=== PATIENT | male | born 1930 | race Two or more races ===

== ENCOUNTER 2016-10-22 21:52 | Emergency (ER) | payer OTHER ==
[2016-10-22 22:06] VITALS: TEMP 97.8; BMI 22.3
--- NOTE | 2016-10-22 22:25 | PDOC ---
History of Present Illness - General History Source: Patient, Family Exam Limitations: No Limitations - History of Present Illness Initial Comments: 10/22/16 22:38 The patient is a 86 year old male with significant past medical history of hypertension who presents to the ED for elevated blood pressure prior to arrival. As per family, at bedside, became concerned after noting his blood pressure elevated. States after checking monitoring his blood pressure several times despite the patient taking his medications, his blood pressure continued to be elevated. Patient does not have any complaints. Family states his blood pressure has improved since he has been in the ER. His blood pressure at home was 180 systolic and now it is 170 systolic. The patient denies fever, chills, cough, SOB, chest pain, and palpitations. The patient denies abdominal pain, nausea, vomiting, and diarrhea. Allergies: Penicillin Social History: No alcohol, tobacco, or drug use reported. Past Surgical History: None reported PCP: Dr. John Bethea <Brie Nava - Last Filed: 10/22/16 22:38> - General History Source: Patient, Family <Jeovanny España - Last Filed: 10/22/16 23:40> - General Chief Complaint: Blood Pressure Problem Stated Complaint: BLOOD PRESSURE PROBLEM Time Seen by Provider: 10/22/16 22:22 Past History <Brie Nava - Last Filed: 10/22/16 22:38> - Past Medical History Anemia: No Asthma: No Cancer: No Cardiac Disorders: No CVA: No COPD: No CHF: No Dementia: No Diabetes: No GI Disorders: No Disorders: No HTN: Yes Hypercholesterolemia: No Liver Disease: No Seizures: No Thyroid Disease: No - Psycho/Social/Smoking Cessation Hx Anxiety: No Suicidal Ideation: No Smoking History: Current some day smoker Number of Cigarettes Smoked Daily: 2 Cigars Per Day: 1 Information on smoking cessation initiated: No 'Breaking Loose' booklet given: 08/16/15 Hx Alcohol Use: No Drug/Substance Use Hx: No Substance Use Type: None Hx Substance Use Treatment: No <Jeovanny España - Last Filed: 10/22/16 23:40> - Past Medical History Allergies/Adverse Reactions: Allergies Allergy/AdvReac Type Severity Reaction Status Date / Time Penicillins Allergy Verified 10/22/16 22:02 Home Medications: Ambulatory Orders Losartan Potassium 25 mg PO DAILY 10/22/16 Metoprolol Tartrate 25 mg PO BID 10/22/16 Review of Systems - Review of Systems Able to Perform ROS?: Yes Comments:: 10/22/16 22:38 CONSTITUTIONAL: Absent: fever, no chills, no fatigue EYES: Absent: visual changes ENT: Absent: ear pain, no sore throat CARDIOVASCULAR: +elevated blood pressure Absent: chest pain, no palpitations RESPIRATORY: Absent: cough, no SOB GI: Absent: abdominal pain, no nausea, no vomiting, no constipation, no diarrhea GENITOURINARY: Absent: dysuria, no frequency, no hematuria MUSCULOSKELETAL: Absent: back pain, no arthralgia, no myalgia SKIN: Absent: rash NEURO: Absent: headache <Brie Nava - Last Filed: 10/22/16 22:38> *Physical Exam - Vital Signs Last Vital Signs Temp Pulse Resp BP Pulse Ox 97.8 F 68 18 171/89 98 10/22/16 22:03 10/22/16 22:03 10/22/16 22:03 10/22/16 22:03 10/22/16 22:03 - Physical Exam Comments: 10/22/16 22:39 GENERAL: Well-appearing, well-nourished. No apparent distress. HEENT: Normocephalic, atraumatic. PERRL, EOM intact. CARDIOVASCULAR: Normal S1, S2. Regular rate and rhythm. PULMONARY: Clear to auscultation bilaterally. ABDOMEN: Soft, non-distended, non-tender. EXTREMITIES: Normal ROM in all four extremities. No gross deformities. SKIN: Warm, dry. No rash NEUROLOGICAL: No focal neurological deficits. <Brie Nava - Last Filed: 10/22/16 22:38> - Vital Signs Last Vital Signs Temp Pulse Resp BP Pulse Ox 97.8 F 68 18 171/89 98 10/22/16 22:03 10/22/16 22:03 10/22/16 22:03 10/22/16 22:03 10/22/16 22:03 <Jeovanny España - Last Filed: 10/22/16 23:40> Medical Decision Making - Medical Decision Making 10/22/16 23:40 Dr. España: The scribe's documentation has been prepared under my direction and personally reviewed by me in its entirery. I confirm that the note above accurately reflects all work, treatment, procedures, and medical decision making performed by me. <Jeovanny España - Last Filed: 10/22/16 23:40> *DC/Admit/Observation/Transfer - Attestations Scribe Attestion: 10/22/16 22:39 Documentation prepared by Brie Nava, acting as medical sales representative for Jeovanny España MD/DO. <Brie Nava - Last Filed: 10/22/16 22:38> - Discharge Dispostion Admit: No <Jeovanny España - Last Filed: 10/22/16 23:40> Diagnosis at time of Disposition: Hypertension - Discharge Dispostion Disposition: HOME Condition at time of disposition: Improved - Referrals Referrals: John Bethea MD [Primary Care Provider] - - Patient Instructions Printed Discharge Instructions: DI for High Blood Pressure, How to Monitor Your Blood Pressure at Home Print Language: CAP[place] VERDEAN
[2016-10-22 22:58] VITALS: BP 169/81; PULSE 65
== END 2016-10-22 23:51 | disposition home or self-care (01) ==
LOC: JER 21:52
DX: I10 Essential (primary) hypertension (principal); F17.210 Nicotine dependence, cigarettes, uncomplicated
CPT/HCPCS: 99281-25

== ENCOUNTER 2016-11-11 14:00 | Emergency (ER) | payer OTHER ==
[2016-11-11 14:10] VITALS: TEMP 97.3; BMI 20.2
--- NOTE | 2016-11-11 15:55 | PDOC ---
History of Present Illness - General History Source: Patient Exam Limitations: No Limitations - History of Present Illness Initial Comments: 11/11/16 17:27 The patient is a 86 year old male presenting with his family, with a significant past medical history of HTN, HLD, AAA and dementia, who presents to the emergency department after a fall yesterday. The family states that the patient fell and hit the left side of his head, as well as the left side of her ribs. The family denies any loss of consciousness. The patient is not on blood thinners. The patient describes the headache as mild, without radiation or modifying factors. The patient also describes his left sided rib pain as ranging from mild to moderate, without radiation. He notes that the pain is exacerbated when he takes a deep breath. The patient has been taking Motrin 800 mg with no relief of his symptoms. The patient denies chest pain, shortness of breath and dizziness. Denies fever, chills, nausea, vomit, diarrhea and constipation. Denies dysuria, frequency, urgency and hematuria. Allergies: Penicillin Past surgical history: None reported Social history: No alcohol, tobacco or drug reported <Jeovanny Aquino - Last Filed: 11/11/16 17:27> <Blas Nazario - Last Filed: 11/11/16 18:49> - General Chief Complaint: Injury Stated Complaint: CHEST PAIN Past History <Jeovanny Aquino - Last Filed: 11/11/16 17:27> - Past Medical History Anemia: No Asthma: No Cancer: No Cardiac Disorders: No CVA: No COPD: No CHF: No Dementia: No Diabetes: Yes GI Disorders: No Disorders: No HTN: Yes Hypercholesterolemia: Yes Liver Disease: No Seizures: No Thyroid Disease: No Other medical history: AAA - Psycho/Social/Smoking Cessation Hx Anxiety: No Suicidal Ideation: No Smoking History: Current some day smoker Have you smoked in the past 12 months: Yes Number of Cigarettes Smoked Daily: 2 Cigars Per Day: 1 Information on smoking cessation initiated: Yes 'Breaking Loose' booklet given: 11/11/16 Hx Alcohol Use: No Drug/Substance Use Hx: No Substance Use Type: None Hx Substance Use Treatment: No <Blas Nazario - Last Filed: 11/11/16 18:49> - Past Medical History Allergies/Adverse Reactions: Allergies Allergy/AdvReac Type Severity Reaction Status Date / Time Penicillins Allergy Verified 11/11/16 14:04 Home Medications: Ambulatory Orders Losartan Potassium 25 mg PO DAILY 10/22/16 Metoprolol Tartrate 25 mg PO BID 10/22/16 Atorvastatin Ca [Lipitor] 20 mg PO HS 11/11/16 Donepezil HCl [Aricept -] 5 mg PO DAILY 11/11/16 Ondansetron [Zofran *Odt*] 8 mg SL TID #30 od.tablet 11/11/16 Oxycodone HCl/Acetaminophen [Percocet 5-325 mg Tablet] 1 tab PO Q4H #20 tablet MDD 4 11/11/16 Review of Systems - Review of Systems Able to Perform ROS?: Yes Comments:: 11/11/16 17:28 GENERAL/CONSTITUTIONAL: No fever or chills. No weakness. HEAD, EYES, EARS, NOSE AND THROAT: (+) Ecchymosis left side of head. No change in vision. No ear pain or discharge. No sore throat. CARDIOVASCULAR: No chest pain or shortness of breath RESPIRATORY: No cough, wheezing, or hemoptysis. GASTROINTESTINAL: No nausea, vomiting, diarrhea or constipation. GENITOURINARY: No dysuria, frequency, or change in urination. MUSCULOSKELETAL: (+) Left sided rib pain. No neck or back pain. SKIN: No rash NEUROLOGIC: (+) Headache. No vertigo, loss of consciousness, or change in strength/sensation. ENDOCRINE: No increased thirst. No abnormal weight change HEMATOLOGIC/LYMPHATIC: No anemia, easy bleeding, or history of blood clots. ALLERGIC/IMMUNOLOGIC: No hives or skin allergy. <Jeovanny Aquino - Last Filed: 11/11/16 17:27> *Physical Exam - Vital Signs Last Vital Signs Temp Pulse Resp BP Pulse Ox 97.3 F L 61 18 162/87 98 11/11/16 14:06 11/11/16 14:06 11/11/16 14:06 11/11/16 14:06 11/11/16 14:06 - Physical Exam Comments: 11/11/16 17:28 GENERAL: Awake, alert, and fully oriented, in no acute distress HEAD: (+) Ecchymosis left side of latter-day. Normocephalic. EYES: PERRLA, EOMI, sclera anicteric, conjunctiva clear ENT: Auricles normal inspection, hearing grossly normal, nares patent, oropharynx clear without exudates. Moist mucosa NECK: Normal ROM, supple, no lymphadenopathy, JVD, or masses LUNGS: No distress, speaks full sentences, clear to auscultation bilaterally HEART: Regular rate and rhythm, normal S1 and S2, no murmurs, rubs or gallops, peripheral pulses normal and equal bilaterally. ABDOMEN: Soft, nontender, normoactive bowel sounds. No guarding, no rebound. No masses EXTREMITIES: Normal inspection, Normal range of motion, no edema. No clubbing or cyanosis. NEUROLOGICAL: Cranial nerves II through XII grossly intact. Normal speech, normal gait, no focal sensorimotor deficits SKIN: Warm, Dry, normal turgor, no rashes or lesions noted. <Jeovanny Aquino - Last Filed: 11/11/16 17:27> - Vital Signs Last Vital Signs Temp Pulse Resp BP Pulse Ox 97.3 F L 61 18 162/87 98 11/11/16 14:06 11/11/16 14:06 11/11/16 14:06 11/11/16 14:06 11/11/16 14:06 <Blas Nazario - Last Filed: 11/11/16 18:49> *DC/Admit/Observation/Transfer - Attestations Scribe Attestion: 11/11/16 17:29 Documentation prepared by Jeovanny Aquino, acting as vp medical for Blas Nazario MD <Jeovanny Aquino - Last Filed: 11/11/16 17:27> - Discharge Dispostion Admit: No - Attestations Physician Attestion: 11/11/16 15:55 I, Dr. Blas Nazario, attest that this document has been prepared under my direction and personally reviewed by me in its entirety. I further attest, that it accurately reflects all work, treatment, procedures and medical decision -making performed by me. <Blas Nazario - Last Filed: 11/11/16 18:49> Diagnosis at time of Disposition: Head contusion Qualifiers: Encounter type: initial encounter Contusion of head detail: scalp Qualified Code(s): S00.03XA - Contusion of scalp, initial encounter Contusion of rib Qualifiers: Encounter type: initial encounter Laterality: left Qualified Code(s): S20.212A - Contusion of left front wall of thorax, initial encounter - Prescriptions Prescriptions: Oxycodone HCl/Acetaminophen [Percocet 5-325 mg Tablet] 1 tab PO Q4H #20 tablet MDD 4 Ondansetron [Zofran *Odt*] 8 mg SL TID #30 od.tablet - Referrals Referrals: John Bethea MD [Primary Care Provider] - - Patient Instructions Printed Discharge Instructions: DI for Rib Contusion, DI for Closed Head Injury Additional Instructions: Return to if any problems. Use the incentive spirometer so you dont gety pneumonia.
[2016-11-11] MEDS ORDERED: ONDANSETRON *ODT* 4 MG TABLET SL ONE (18:16)
[2016-11-11] MEDS ORDERED: HYDROmorphone HCL CARPU-JECT 1 MG/1 ML DISP.SYRIN IM ONE (18:16)
[2016-11-11] MEDS ORDERED: HYDROmorphone HCL CARPU-JECT 1 MG/1 ML DISP.SYRIN ONE (18:32)
[2016-11-11] MEDS ORDERED: ONDANSETRON *ODT* 4 MG TABLET ONE (18:32)
[2016-11-11 18:40] VITALS: BP 152/64; PULSE 65
--- NOTE | 2016-11-18 11:45 | EKG ---
Test Reason : Blood Pressure : / mmHG Vent. Rate : 062 BPM Atrial Rate : 062 BPM P-R Int : 240 ms QRS Dur : 084 ms QT Int : 392 ms P-R-T Axes : 034 -03 025 degrees QTc Int : 397 ms SINUS RHYTHM WITH 1ST DEGREE A-V BLOCK POSSIBLE INFERIOR INFARCT , AGE UNDETERMINED ABNORMAL ECG WHEN COMPARED WITH ECG OF 02-MAR-2016 20:32, NO SIGNIFICANT CHANGE WAS FOUND Confirmed by WHIT SOFIA, PITO ([id number]) on 11/18/2016 11:45:23 AM Referred By: Confirmed By:PITO SHERMAN MD
== END 2016-11-11 19:12 | disposition home or self-care (01) ==
LOC: JER 14:00
PROC: 3E023NZ Introduction of Analgesics, Hypnotics, Sedatives into Muscle, Percutaneous Approach (ICD-10-PCS; principal; 2016-11-11)
DX: S00.83XA Contusion of other part of head, initial encounter (principal); S20.212A Contusion of left front wall of thorax, initial encounter; W01.198A Fall on same level from slipping, tripping and stumbling with subsequent striking against other object, initial encounter; Y93.89 Activity, other specified; Y92.89 Other specified places as the place of occurrence of the external cause; Y99.8 Other external cause status
CPT/HCPCS: 70450-TC; 71250-TC; 72125-TC; 93005; 93010; 96372; 99282-25

== ENCOUNTER 2017-05-26 12:42 | Inpatient (IN) | payer OTHER ==
--- NOTE | 2017-05-26 12:52 | PDOC ---
History of Present Illness - General Stated Complaint: VOMITING Past History - Past Medical History Allergies/Adverse Reactions: Allergies Allergy/AdvReac Type Severity Reaction Status Date / Time Penicillins Allergy Verified 11/11/16 14:04 Home Medications: Ambulatory Orders Losartan Potassium 25 mg PO DAILY 10/22/16 Metoprolol Tartrate 25 mg PO BID 10/22/16 Atorvastatin Ca [Lipitor] 20 mg PO HS 11/11/16 Donepezil HCl [Aricept -] 5 mg PO DAILY 11/11/16 Ondansetron [Zofran *Odt*] 8 mg SL TID #30 od.tablet 11/11/16 Oxycodone HCl/Acetaminophen [Percocet 5-325 mg Tablet] 1 tab PO Q4H #20 tablet MDD 4 11/11/16 Anemia: No Asthma: No Cancer: No Cardiac Disorders: No CVA: No COPD: No CHF: No Dementia: No Diabetes: Yes GI Disorders: No Disorders: No HTN: Yes Hypercholesterolemia: Yes Liver Disease: No Seizures: No Thyroid Disease: No - Suicide/Smoking/Psychosocial Hx Smoking History: Current some day smoker Have you smoked in the past 12 months: Yes Number of Cigarettes Smoked Daily: 2 Cigars Per Day: 1 'Breaking Loose' booklet given: 11/11/16 Hx Alcohol Use: No Drug/Substance Use Hx: No Substance Use Type: None Hx Substance Use Treatment: No *DC/Admit/Observation/Transfer - Referrals - Patient Instructions - Post Discharge Activity - Attestations Physician Attestion: 05/26/17 12:51 I, Dr. Blas Nazario, attest that this document has been prepared under my direction and personally reviewed by me in its entirety. I further attest, that it accurately reflects all work, treatment, procedures and medical decision -making performed by me.
[2017-05-26] MEDS ORDERED: PANTOPRAZOLE SODIUM 40 MG in SODIUM CHLORIDE 100 ML IVPB ONE (13:07)
[2017-05-26] MEDS ORDERED: ONDANSETRON 4 MG/2 ML VIAL IVPUSH ONE (13:07)
[2017-05-26 13:09] VITALS: BMI 20.7
[2017-05-26] MEDS ORDERED: PANTOPRAZOLE SODIUM 40 MG/100 ML BAG IVPB ONE ×3 (13:12→23:35)
[2017-05-26] MEDS ORDERED: ONDANSETRON 4 MG/2 ML VIAL ONE (13:13)
--- NOTE | 2017-05-26 13:21 | PDOC ---
History of Present Illness - General Chief Complaint: Coffee Ground Emesis Stated Complaint: VOMITING Time Seen by Provider: 05/26/17 12:52 History Source: Patient, Care Provider - History of Present Illness Travel History: No Initial Comments: 05/26/17 13:15 87yo man with PMH of HTN, HLD, AAA, CVA (5 years ago, no residual effects), and dementia who presents with coffee ground emesis for the past several hours. Family reports the patient ate breakfast (eggs and plantains) and around 11AM starting to vomit. Family denies any prior similar episodes, no recent NSAID use , hematochezia, or melena. Patient has diffuse abdominal pain and CHRISTOPHER since onset of emesis. Patient denies dysuria and hematuria. Allergies: Penicillin Past surgical history: None reported Social history: Occasional cigars, no cigarettes, EtOH, or drugs use reported PCP: Dr. Bethea GI: Dr. Estrada 05/26/17 20:17 Past History - Past Medical History Allergies/Adverse Reactions: Allergies Allergy/AdvReac Type Severity Reaction Status Date / Time Penicillins Allergy Verified 11/11/16 14:04 Home Medications: Ambulatory Orders Losartan Potassium 25 mg PO DAILY 10/22/16 Metoprolol Tartrate 25 mg PO BID 10/22/16 Atorvastatin Ca [Lipitor] 20 mg PO HS 11/11/16 Donepezil HCl [Aricept -] 5 mg PO DAILY 11/11/16 Ondansetron [Zofran *Odt*] 8 mg SL TID #30 od.tablet 11/11/16 Pantoprazole Sodium [Protonix -] 40 mg PO DAILY #30 tablet.ec 05/27/17 Anemia: No Asthma: No Cancer: No Cardiac Disorders: No CVA: No COPD: No CHF: No Dementia: No Diabetes: Yes GI Disorders: No Disorders: No HTN: Yes Hypercholesterolemia: Yes Liver Disease: No Seizures: No Thyroid Disease: No - Suicide/Smoking/Psychosocial Hx Smoking History: Current every day smoker Have you smoked in the past 12 months: Yes Number of Cigarettes Smoked Daily: 2 Cigars Per Day: 2 Information on smoking cessation initiated: No 'Breaking Loose' booklet given: 11/11/16 Hx Alcohol Use: No Drug/Substance Use Hx: No Substance Use Type: None Hx Substance Use Treatment: No Review of Systems - Review of Systems ABD/GI: Yes: Symptoms Reported : Yes: Other (hesistancy). No: Burning, Hematuria All Other Systems: Reviewed and Negative *Physical Exam - Vital Signs Last Vital Signs Temp Pulse Resp BP Pulse Ox 97.8 F 75 16 192/96 99 05/26/17 13:05 05/26/17 13:05 05/26/17 13:05 05/26/17 13:05 05/26/17 13:05 - Physical Exam General Appearance: Yes: Nourished, Appropriately Dressed, Other (intermittent vomiting) HEENT: positive: Normal ENT Inspection Respiratory/Chest: positive: Lungs Clear, Normal Breath Sounds Cardiovascular: positive: Regular Rhythm, Regular Rate, S1, S2 Gastrointestinal/Abdominal: positive: Normal Bowel Sounds, Soft, Distended (mild ), Tenderness (diffusely tender, L > R), Other. negative: Guarding, Rebound Heart Score/ECG Review - ECG Impressions Comment:: 05/26/17 13:57 EKG: NSR, rate 63, 1st degree AV block, DE 232, QTc 421 ED Treatment Course - LABORATORY CBC & Chemistry Diagram: 05/27/17 05:49 05/27/17 05:49 - RADIOLOGY Radiology Studies Ordered: 05/26/17 17:15 EXAM#: TYPE/EXAM: RESULT: [id number] CT/ABDOMEN PELVIS CT WITH CONTR Abdomen and pelvis CT (with intravenous contrast) Clinical information - coffee ground emesis Multiplanar imaging was performed following the intravenous administration of nonionic contrast. Oral contrast was not administered. No evidence of pneumoperitoneum, abscess, free intraperitoneal fluid or bowel obstruction. There is no gross gastric or small bowel pathology. The appendix appears unremarkable. Mild sigmoid diverticulosis is noted without evidence of acute diverticulitis. A 4.2 cm fusiform infrarenal aortic aneurysm is noted which previously had measured 4 cm in diameter at the time of a CT study of 03/27/2016. There is also a separate fusiform suprarenal aortic aneurysm with a current 4.2 cm diameter, previously measuring 4 cm. The suprarenal aneurysm represents a continuation of mild fusiform aneurysmal dilatation of the partially imaged descending thoracic aorta. The imaged descending thoracic aorta demonstrates a 3.3 cm diameter. As on the prior study there is mild fusiform aneurysmal dilatation of the right common iliac artery. No CT evidence of aortic rupture. There is no gross CT evidence of an aortoenteric fistula. CT is of limited sensitivity in this regard. The liver, spleen, pancreas, gallbladder, adrenal glands and kidneys demonstrate no discrete abnormality. Stable right renal upper pole cortical cyst. No definite lymphadenopathy is seen. Mild to moderate prostate enlargement. The visualized osseous structures demonstrate no obvious CT evidence of acute pathology or neoplastic disease. Lower lumbar degenerative disc and facet joint changes. IMPRESSION: No definite CT findings of acute pathology are identified. A 4.2 cm infrarenal aortic aneurysm is noted previously measuring 4 cm in diameter on a CT study of 03/27/2016. A separate 4.2 cm suprarenal aortic aneurysm is seen previously measuring 4 cm in diameter. This suprarenal aneurysm represents continuation of mild fusiform aneurysmal dilatation of the descending thoracic aorta. A 1.1 cm pancreatic uncinate cyst described on an MRI study of 01/14/2011 cannot be appreciated on CT. Mild colonic diverticulosis. Medical Decision Making - Medical Decision Making 05/26/17 13:24 87yo man with PMH of HTN, HLD, AAA who presents with active coffee ground emesis. Will initiate GIB work-up. -CBC, CMP, T&S, coags -guaiac -Zofran for nausea -Protonix IV 40mg bolus -UA 05/26/17 14:37 CBC, BMP 05/26/17 13:10 05/26/17 13:10 Hepatic Panel Total Bilirubin 0.4 mg/dL (0.2-1.0) D 05/26/17 13:10 AST 10 U/L (15-37) L D 05/26/17 13:10 ALT 25 U/L (12-78) 05/26/17 13:10 Alkaline Phosphatase 143 U/L (45-117) H 05/26/17 13:10 Albumin 3.8 g/dl (3.4-5.0) 05/26/17 13:10 UA not c/w infection. Patient does not have acute blood loss anemia and stool guaiac is negative. Will do CT Abdomen/pelvis to assess for any acute pathology. Patient's Cr is 1.4, and will hydrate him before and after IV contrast. 05/26/17 14:41 Lactate is 3.9. Will continue hydration and trend. Patient still vomiting. Gave Reglan 10mg. 05/26/17 18:53 Patient continues to have nausea, but no further emesis. Will give an additional dose of Zofran. Also c/o CHRISTOPHER. Will give Tylenol IV and reassess. Repeat lactate is 3.2 (from 3.9). He is received 2L of fluids; will give an additional 250cc bolus of NS, and a maintenance rate of 75cc/hr. CT A/P does not show any acute pathology that can be attributable to his current presentation. Case discussed with Dr. Gaitan (who is covering for Dr. Bethea). Patient will be admitted for further work-up and management of symptoms. Per Dr. Gaitan, will give an additional dose of IV protonix and make patient NPO after midnight for possible EGD procedure tomorrow. Call placed to Dr. Estrada's office, and Dr. Golden returned the call. Case discussed; someone from the office will evaluate the patient tomorrow. No specific plans were made for EGD tomorrow. 05/26/17 20:06 Patient is continuing to have CHRISTOPHER. Family provided additional history that he was unsteady on his feet this morning before arriving to the ED. Denies any falls or LOC. There is a family history of brain aneurysm (daughter). Patient is a poor historian, but appears that his CHRISTOPHER was gradual onset after the vomiting. Given his age, and patient concern that he is weaker than his baseline , will order a Head CT to r/o any intracranial hemorrhage or acute pathology. 05/26/17 20:18 Case signed out overnight resident. *DC/Admit/Observation/Transfer Diagnosis at time of Disposition: Coffee ground emesis, Lactic acidosis - Discharge Dispostion Disposition: HOME Condition at time of disposition: Stable Admit: Yes - Prescriptions - Referrals - Patient Instructions - Post Discharge Activity
[2017-05-26 13:45] LABS: BASOPHIL 0.3 % (0-2.0); EOSINOPHIL 0.5 % (0-4.5); MCH 27.5 pg (25.7-33.7); MCHC 32.6 g/dl (32.0-35.9); MEAN CELL VOLUME 84.5 fl (80-96); MEAN PLT VOLUME 8.1 fl (7.5-11.1); NEUTROPHILS 77.3 % (42.8-82.8); PLATELET COUNT 329 K/MM3 (134-434); RDW 15.2 % (11.9-15.9); WHITE BLOOD COUNT 8.8 K/mm3 (4.0-10.0)
[2017-05-26 13:56] LABS: INR 1.11 (0.82-1.09); PROTHROMBIN TIME (PATIENT) 12.5 SEC (9.98-11.88)
[2017-05-26] MEDS ORDERED: SODIUM CHLORIDE 1,000 ML IV STA ×2 (13:56→14:45)
[2017-05-26 14:09] LABS: ALBUMIN 3.8 g/dl (3.4-5.0); ALK PHOS 143 U/L (45-117); ANION GAP 9 (8-16); BILIRUBIN,TOTAL 0.4 mg/dL (0.2-1.0); CALCIUM 8.8 mg/dL (8.5-10.1); CO2 27 mmol/L (21-32); CREATININE 1.4 mg/dL (0.7-1.3); GLUCOSE,RANDOM 146 mg/dL (74-106); SGOT/AST 10 U/L (15-37); SGPT/ALT 25 U/L (12-78); TOT PROT 8.1 g/dl (6.4-8.2)
[2017-05-26] MEDS ORDERED: METOCLOPRAMIDE HCL INJECTION 10 MG/2 ML VIAL IVPUSH ONE (14:27)
[2017-05-26] MEDS ORDERED: METOCLOPRAMIDE HCL INJECTION 10 MG/2 ML VIAL ONE (14:51)
[2017-05-26 15:52] LABS: URINE APPEARANCE CLEAR; URINE BILIRUBIN NEGATIVE (NEGATIVE); URINE BLOOD NEGATIVE (NEGATIVE); URINE COLOR YELLOW; URINE GLUCOSE (UA) NEGATIVE (NEGATIVE); URINE KETONE NEGATIVE (NEGATIVE); URINE LEUK ESTERASE NEGATIVE (NEGATIVE); URINE NITRITE NEGATIVE (NEGATIVE); URINE UROBILINOGEN NEGATIVE mg/dL (0.2-1.0)
[2017-05-26 15:56] LABS: URINE PROTEIN 2+ (NEGATIVE)
[2017-05-26 17:02] LABS: URINE MUCUS RARE; URINE RBC 8 /hpf (0-3); URINE WBC 2 /hpf (3-5)
[2017-05-26] MEDS ORDERED: PANTOPRAZOLE SODIUM 40 MG VIAL IVPUSH ONE (18:28)
[2017-05-26] MEDS ORDERED: SODIUM CHLORIDE 1,000 ML IV SCH (18:30)
[2017-05-26] MEDS ORDERED: ACETAMINOPHEN 1000 MG/100 ML VIAL (NON FORMULARY) IVPB ONE (18:31)
[2017-05-26] MEDS ORDERED: ACETAMINOPHEN INJECTION 100 ML IVPB ONE (18:34)
[2017-05-26] MEDS ORDERED: SODIUM CHLORIDE 0.9% 1000 ML INFUS.BAG IV ONE (20:26)
[2017-05-26] MEDS ORDERED: ONDANSETRON 4 MG/2 ML VIAL IVPB PRN (20:26)
[2017-05-26] MEDS ORDERED: ACETAMINOPHEN 325 MG TABLET (FP) PO PRN (20:26)
[2017-05-26 21:11] LABS: URINE LEUK ESTERASE NEGATIVE (NEGATIVE)
[2017-05-26] MEDS: PANTOPRAZOLE SODIUM 40 MG VIAL IVPUSH SCH (23:39)
[2017-05-27 06:35] LABS: MCHC 33.3 g/dl (32.0-35.9); MEAN PLT VOLUME 8.3 fl (7.5-11.1); PLATELET COUNT 297 K/MM3 (134-434); RDW 15.2 % (11.9-15.9); WHITE BLOOD COUNT 7.4 K/mm3 (4.0-10.0)
[2017-05-27 06:51] LABS: ALBUMIN 3.1 g/dl (3.4-5.0); ANION GAP 7 (8-16); CO2 27 mmol/L (21-32); GLUCOSE,RANDOM 81 mg/dL (74-106)
[2017-05-27 06:57] LABS: ALK PHOS 115 U/L (45-117); BILIRUBIN,TOTAL 0.7 mg/dL (0.2-1.0); CREATININE 1.1 mg/dL (0.7-1.3); SGOT/AST 11 U/L (15-37); SGPT/ALT 20 U/L (12-78); TOT PROT 6.4 g/dl (6.4-8.2)
[2017-05-27] MEDS: PANTOPRAZOLE SODIUM 40 MG VIAL IVPUSH SCH (10:40)
[2017-05-27] MEDS ORDERED: FLU VACCINE QUAD 60 MCG/0.5 ML (MDV 17-18) IM ONE (10:42)
--- NOTE | 2017-05-27 12:56 | HP ---
Admitting History and Physical - Primary Care Physician PCP: John Bethea - Admission Chief Complaint: Vomiting History of Present Illness: 87yo man with PMH of HTN, HLD, AAA, CVA (5 years ago, no residual effects), and dementia who presents with coffee ground emesis for the past several hours. Family reports the patient ate breakfast (eggs and plantains) and around 11AM starting to vomit. Family denies any prior similar episodes, no recent NSAID use , hematochezia, or melena. Patient has diffuse abdominal pain and CHRISTOPHER since onset of emesis. Patient denies dysuria and hematuria. Upon questioning the daughter, she explains there was no blood or blood like material in his vomitus, He vomited 3 x yesterday after his breakfast. Patient is no pain at the moment, no nausea or vomiting. He complained of headache right after vomiting episode yesterday, but no headache at the moment. Head Ct and abd Ct was unremarkable. 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 - Smoking History Smoking history: Current every day smoker Have you smoked in the past 12 months: Yes Aproximately how many cigarettes per day: 2 - Alcohol/Substance Use Hx Alcohol Use: No Home Medications - Allergies Allergies/Adverse Reactions: Allergies Allergy/AdvReac Type Severity Reaction Status Date / Time Penicillins Allergy Verified 11/11/16 14:04 - Home Medications Home Medications: Ambulatory Orders Losartan Potassium 25 mg PO DAILY 10/22/16 Metoprolol Tartrate 25 mg PO BID 10/22/16 Atorvastatin Ca [Lipitor] 20 mg PO HS 11/11/16 Donepezil HCl [Aricept -] 5 mg PO DAILY 11/11/16 Ondansetron [Zofran *Odt*] 8 mg SL TID #30 od.tablet 11/11/16 Oxycodone HCl/Acetaminophen [Percocet 5-325 mg Tablet] 1 tab PO Q4H #20 tablet MDD 4 11/11/16 Review of Systems - Review of Systems Constitutional: reports: No Symptoms Eyes: reports: No Symptoms HENT: reports: No Symptoms Neck: reports: No Symptoms Cardiovascular: reports: No Symptoms Respiratory: reports: No Symptoms Gastrointestinal: reports: Nausea, Vomiting Genitourinary: reports: No Symptoms Breasts: reports: No Symptoms Reported Musculoskeletal: reports: No Symptoms Integumentary: reports: No Symptoms Neurological: reports: No Symptoms Endocrine: reports: No Symptoms Hematology/Lymphatic: reports: No Symptoms Psychiatric: reports: No Symptoms Physical Examination Vital Signs: Vital Signs Temperature 97.6 F 05/27/17 07:59 Pulse Rate 71 05/27/17 07:59 Respiratory Rate 17 05/27/17 07:59 Blood Pressure 110/71 05/27/17 07:59 O2 Sat by Pulse Oximetry (%) 98 05/27/17 07:59 Constitutional: Yes: Well Nourished, No Distress, Calm Cardiovascular: Yes: Regular Rate and Rhythm Respiratory: Yes: Regular Musculoskeletal: Yes: WNL Extremities: Yes: WNL Edema: No Peripheral Pulses WNL: Yes Neurological: Yes: Alert, Oriented Psychiatric: Yes: Alert, Oriented Labs: CBC, BMP 05/27/17 05:49 05/27/17 05:49 Problem List - Problems (1) Vomiting Assessment/Plan: -no more episodes of vomiting -no nausea Code(s): R11.10 - VOMITING, UNSPECIFIED (2) Headache Assessment/Plan: -CT head negative, -headache resolved Code(s): R51 - HEADACHE Assessment/Plan Spoke to daughter to have patient follow up in the office, reviewed testing and labs. if repeat vomiting occurs, would need f/u with GI- Dr Estrada
[2017-05-27 13:19] VITALS: BP 115/71; PULSE 75; TEMP 98
--- NOTE | 2017-05-29 11:37 | EKG ---
Test Reason : Blood Pressure : / mmHG Vent. Rate : 063 BPM Atrial Rate : 063 BPM P-R Int : 232 ms QRS Dur : 084 ms QT Int : 412 ms P-R-T Axes : 029 000 026 degrees QTc Int : 421 ms SINUS RHYTHM WITH 1ST DEGREE A-V BLOCK OTHERWISE NORMAL ECG WHEN COMPARED WITH ECG OF 11-NOV-2016 14:07, NO SIGNIFICANT CHANGE WAS FOUND Confirmed by ABDOUL SANTANA MD ([id number]) on 05/29/2017 11:36:35 AM Referred By: Confirmed By:ABDOUL SANTANA MD
== END 2017-05-27 13:15 | disposition home or self-care (01) | DRG 378 ==
LOC: JER 12:42 → JERBED 18:29
PROVIDERS: ADMIT Family Medicine; ATTEND Family Medicine
DX: K92.0 Hematemesis (principal); E87.2 Acidosis; K86.2 Cyst of pancreas; I10 Essential (primary) hypertension; E78.5 Hyperlipidemia, unspecified; I71.4 Abdominal aortic aneurysm, without rupture; F03.90 Unspecified dementia, unspecified severity, without behavioral disturbance, psychotic disturbance, mood disturbance, and anxiety; F17.200 Nicotine dependence, unspecified, uncomplicated; R51 Headache; I71.2 Thoracic aortic aneurysm, without rupture; K57.90 Diverticulosis of intestine, part unspecified, without perforation or abscess without bleeding; Z86.73 Personal history of transient ischemic attack (TIA), and cerebral infarction without residual deficits; Z88.0 Allergy status to penicillin
CPT/HCPCS: 36415; 70450-TC; 74177-TC; 80053; 81003; 81015; 82272; 83605; 85025; 85027; 85044; 85610; 86850; 86900; 86901; 93005; 93010; 99285-25

== ENCOUNTER 2018-06-21 10:07 | Inpatient (IN) | payer OTHER ==
--- NOTE | 2018-06-21 11:22 | PDOC ---
History of Present Illness - General Chief Complaint: Blood Pressure Problem Stated Complaint: LOW BLOOD PRESSURE Time Seen by Provider: 06/21/18 10:55 History Source: Patient Exam Limitations: No Limitations - History of Present Illness Initial Comments: 88 yo M history HTN, HL, prior GIB, prior kidney stone presents with weakness, lightheadedness. As per family, he had red urine this morning. No recent bleeding, dark stools. Pt denies any pain at present, but states he does not feel well. No recent fevers, back pain. Past History - Past Medical History Allergies/Adverse Reactions: Allergies Allergy/AdvReac Type Severity Reaction Status Date / Time Penicillins Allergy Verified 06/21/18 10:25 Home Medications: Ambulatory Orders Losartan Potassium 100 mg PO DAILY 10/22/16 Metoprolol Tartrate 25 mg PO BID 10/22/16 Donepezil HCl [Aricept -] 10 mg PO DAILY 11/11/16 Amlodipine Besylate [Norvasc -] 5 mg PO DAILY 06/21/18 Anemia: No Asthma: No Cancer: No Cardiac Disorders: No CVA: No COPD: No CHF: No Dementia: No Diabetes: Yes GI Disorders: No Disorders: No HTN: Yes Hypercholesterolemia: Yes Liver Disease: No Seizures: No Thyroid Disease: No - Suicide/Smoking/Psychosocial Hx Smoking History: Former smoker Have you smoked in the past 12 months: No Number of Cigarettes Smoked Daily: 2 Cigars Per Day: 2 Information on smoking cessation initiated: No 'Breaking Loose' booklet given: 11/11/16 Hx Alcohol Use: No Drug/Substance Use Hx: No Substance Use Type: None Hx Substance Use Treatment: No Review of Systems - Review of Systems Able to Perform ROS?: Yes Comments:: GENERAL/CONSTITUTIONAL: No fever or chills. +Weakness. HEAD, EYES, EARS, NOSE AND THROAT: No change in vision. No ear pain or discharge. No sore throat. CARDIOVASCULAR: No chest pain or shortness of breath. RESPIRATORY: No cough, wheezing, or hemoptysis. GASTROINTESTINAL: No nausea, vomiting, diarrhea or constipation. GENITOURINARY: No dysuria, frequency, or change in urination. MUSCULOSKELETAL: No joint or muscle swelling or pain. No neck or back pain. SKIN: No rash NEUROLOGIC: No headache, vertigo, loss of consciousness, or change in strength/ sensation. ENDOCRINE: No increased thirst. No abnormal weight change. HEMATOLOGIC/LYMPHATIC: No anemia, easy bleeding, or history of blood clots. ALLERGIC/IMMUNOLOGIC: No hives or skin allergy. *Physical Exam - Vital Signs Last Vital Signs Temp Pulse Resp BP Pulse Ox 98.1 F 98 H 18 93/62 99 06/21/18 10:22 06/21/18 10:22 06/21/18 10:22 06/21/18 10:22 06/21/18 10:22 - Physical Exam Comments: GENERAL: Awake, alert, and fully oriented, in no acute distress HEAD: No signs of trauma EYES: PERRLA, EOMI, sclera anicteric, conjunctiva clear ENT: Auricles normal inspection, hearing grossly normal, nares patent, oropharynx clear without exudates. Moist mucosa NECK: Normal ROM, supple, no lymphadenopathy, JVD, or masses LUNGS: Breath sounds equal, clear to auscultation bilaterally. No wheezes, and no crackles HEART: Irregularly irregular, normal S1 and S2, no murmurs, rubs or gallops ABDOMEN: Soft, nontender, normoactive bowel sounds. No guarding, no rebound. No masses EXTREMITIES: Normal range of motion, no edema. No clubbing or cyanosis. No cords, erythema, or tenderness NEUROLOGICAL: Cranial nerves II through XII grossly intact. Normal speech. Motor and sensation intact. SKIN: Warm, Dry, normal turgor, no rashes or lesions noted. Moderate Sedation - Procedure Monitoring Vital Signs: Procedure Monitoring Vital Signs Temperature 98.1 F 06/21/18 10:22 Pulse Rate 98 H 06/21/18 10:22 Respiratory Rate 18 06/21/18 10:22 Blood Pressure 93/62 06/21/18 10:22 O2 Sat by Pulse Oximetry (%) 99 06/21/18 10:22 Heart Score/ECG Review - ECG Impressions Comment:: EKG 10:38- afib, ventricular rate 113 bpm Prior EKGs reviewed, the atrial fibrillation is new. ED Treatment Course - LABORATORY CBC & Chemistry Diagram: 06/21/18 11:37 06/21/18 11:37 Medical Decision Making - Medical Decision Making 06/21/18 11:28 Pt with weakness, hypotension on arrival in ED. With hematuria this morning as per family. Will obtain labs, UA. Will check stool for occult blood if any signs of anemia. 06/21/18 13:48 Prior EKGs reviewed, the atrial fibrillation is new onset. Will admit for further workup. D/w Dr. Gaitan, covering Dr. Clemens. *DC/Admit/Observation/Transfer Diagnosis at time of Disposition: Atrial fibrillation Qualifiers: Atrial fibrillation type: unspecified Qualified Code(s): I48.91 - Unspecified atrial fibrillation - Discharge Dispostion Condition at time of disposition: Stable Decision to Admit order: Yes - Referrals - Patient Instructions - Post Discharge Activity
[2018-06-21] MEDS ORDERED: SODIUM CHLORIDE 500 ML IV STA ×2 (11:30→13:47)
[2018-06-21 12:49] LABS: BASO % 0.2 % (0-2.0); EOS % 0.6 % (0-4.5); HEMATOCRIT 39.2 % (35.4-49); HEMOGLOBIN 13.5 GM/dL (11.7-16.9); LYMPH % 14.4 % (8-40); MCH 28.4 pg (25.7-33.7); MCHC 34.5 g/dl (32.0-35.9); MEAN CELL VOLUME 82.1 fl (80-96); MEAN PLT VOLUME 8.1 fl (7.5-11.1); NEUT % 73.8 % (42.8-82.8); PLATELET COUNT 333 K/MM3 (134-434); RBC 4.78 M/mm3 (4.00-5.60); RDW 15.4 % (11.9-15.9); WHITE BLOOD COUNT 5.6 K/mm3 (4.0-10.0)
[2018-06-21 13:42] LABS: BLOOD UREA NITROGEN 21 mg/dL (7-18); CREATININE 1.6 mg/dL (0.55-1.3)
[2018-06-21 13:43] LABS: ALBUMIN 3.1 g/dl (3.4-5.0); CHLORIDE 108 mmol/L (98-107); CO2 28 mmol/L (21-32)
[2018-06-21 13:44] LABS: ALK PHOS 143 U/L (45-117); SGOT/AST 9 U/L (15-37)
[2018-06-21 13:45] LABS: URINE APPEARANCE CLEAR; URINE BILIRUBIN NEGATIVE (<2.0 mg/dL); URINE COLOR YELLOW; URINE GLUCOSE (UA) NEGATIVE (NEGATIVE); URINE KETONE NEGATIVE (NEGATIVE); URINE LEUK ESTERASE NEGATIVE (NEGATIVE); URINE NITRITE NEGATIVE (NEGATIVE); URINE PROTEIN NEGATIVE (NEGATIVE); URINE UROBILINOGEN NEGATIVE mg/dL (0.2-1.0)
[2018-06-21 13:51] LABS: ANION GAP 3 MMOL/L (8-16); BILIRUBIN,TOTAL 0.4 mg/dL (0.2-1); CALCIUM 8.5 mg/dL (8.5-10.1); GLUCOSE,RANDOM 93 mg/dL (74-106); POTASSIUM 4.4 mmol/L (3.5-5.1); SGPT/ALT 18 U/L (13-61); SODIUM 139 mmol/L (136-145)
[2018-06-21] MEDS ORDERED: ACETAMINOPHEN 325 MG TABLET (FP) PO PRN (14:01)
--- NOTE | 2018-06-21 14:04 | HP ---
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 - Smoking History Smoking history: Former smoker Have you smoked in the past 12 months: No Aproximately how many cigarettes per day: 2 - Alcohol/Substance Use Hx Alcohol Use: No Home Medications - Allergies Allergies/Adverse Reactions: Allergies Allergy/AdvReac Type Severity Reaction Status Date / Time Penicillins Allergy Verified 06/21/18 10:25 - Home Medications Home Medications: Ambulatory Orders Losartan Potassium 100 mg PO DAILY 10/22/16 Metoprolol Tartrate 25 mg PO BID 10/22/16 Donepezil HCl [Aricept -] 10 mg PO DAILY 11/11/16 Amlodipine Besylate [Norvasc -] 5 mg PO DAILY 06/21/18 Review of Systems - Review of Systems Constitutional: reports: Weakness Eyes: reports: No Symptoms HENT: reports: No Symptoms Neck: reports: No Symptoms Cardiovascular: reports: Palpitations Respiratory: reports: No Symptoms Gastrointestinal: reports: No Symptoms Genitourinary: reports: No Symptoms Musculoskeletal: reports: No Symptoms Integumentary: reports: No Symptoms Neurological: reports: Headache Endocrine: reports: No Symptoms Hematology/Lymphatic: reports: No Symptoms Psychiatric: reports: No Symptoms Physical Examination Vital Signs: Vital Signs Temperature 98.1 F 06/21/18 10:22 Pulse Rate 105 H 06/21/18 14:00 Respiratory Rate 14 06/21/18 14:00 Blood Pressure 108/85 06/21/18 14:00 O2 Sat by Pulse Oximetry (%) 97 06/21/18 14:00 Constitutional: Yes: Mild Distress Eyes: Yes: WNL HENT: Yes: WNL Neck: Yes: WNL Cardiovascular: Yes: Pulse Irregular Respiratory: Yes: WNL Gastrointestinal: Yes: WNL Renal/: Yes: WNL Musculoskeletal: Yes: Muscle Weakness Extremities: Yes: Other Edema: No Peripheral Pulses WNL: Yes Integumentary: Yes: WNL Wound/Incision: Yes: Clean/Dry Neurological: Yes: Confusion, Pre-Existing Deficit ...Motor Strength: LLE, RLE Psychiatric: Yes: Other Labs: CBC, BMP 06/21/18 11:37 06/21/18 11:37 Problem List - Problems (1) Dementia Code(s): F03.90 - UNSPECIFIED DEMENTIA WITHOUT BEHAVIORAL DISTURBANCE (2) Atrial fibrillation Code(s): I48.91 - UNSPECIFIED ATRIAL FIBRILLATION Qualifiers: Atrial fibrillation type: unspecified Qualified Code(s): I48.91 - Unspecified atrial fibrillation (3) Headache Code(s): R51 - HEADACHE (4) Hypertension Code(s): I10 - ESSENTIAL (PRIMARY) HYPERTENSION Assessment/Plan TELEMETRY MONITORING CHECKING TSH/LABS PT EVAL PATIENT APPEARS TO HAVE IMPROVED IN THE E.R. FAMILY AGREES TO ADMIT AND MONITOR NEURO DR SPAIN OUTPATIENT CAN CALL FOR EVAL/F/U RATE CONTROL AT HIS AGE AND RISKS FOR FALL I WILL NOT ADVISE TO ANTICOAGULATE THIS PATIENT.
[2018-06-21 14:05] LABS: INR 1.12 (0.83-1.09); PROTHROMBIN TIME (PATIENT) 13.2 SEC (9.7-13.0)
[2018-06-21] MEDS ORDERED: SODIUM CHLORIDE 1,000 ML IV SCH (14:15)
--- NOTE | 2018-06-21 16:22 | EKG ---
Test Reason : Blood Pressure : / mmHG Vent. Rate : 113 BPM Atrial Rate : 170 BPM P-R Int : 000 ms QRS Dur : 080 ms QT Int : 306 ms P-R-T Axes : 000 011 013 degrees QTc Int : 419 ms ATRIAL FIBRILLATION WITH RAPID VENTRICULAR RESPONSE NONSPECIFIC ST ABNORMALITY ABNORMAL ECG Confirmed by MD REINALDO, DARRELL ([id number]) on 06/21/2018 4:22:22 PM Referred By: Confirmed By:DARRELL NAJERA MD
[2018-06-21 18:01] VITALS: BMI 21.4
[2018-06-21] MEDS: METOPROLOL TARTRATE 25 MG TABLET (FP) PO SCH (22:10)
[2018-06-22 08:37] LABS: ANION GAP 5 MMOL/L (8-16); BLOOD UREA NITROGEN 17 mg/dL (7-18); CALCIUM 8.3 mg/dL (8.5-10.1); CHLORIDE 113 mmol/L (98-107); CO2 27 mmol/L (21-32); CREATININE 1.4 mg/dL (0.55-1.3); GLUCOSE,RANDOM 83 mg/dL (74-106); POTASSIUM 4.3 mmol/L (3.5-5.1); SODIUM 145 mmol/L (136-145)
[2018-06-22 08:45] LABS: HEMATOCRIT 35.5 % (35.4-49); HEMOGLOBIN 12.5 GM/dL (11.7-16.9); MCH 28.9 pg (25.7-33.7); MCHC 35.1 g/dl (32.0-35.9); MEAN CELL VOLUME 82.3 fl (80-96); MEAN PLT VOLUME 8.1 fl (7.5-11.1); PLATELET COUNT 308 K/MM3 (134-434); RBC 4.31 M/mm3 (4.00-5.60); RDW 14.8 % (11.9-15.9); WHITE BLOOD COUNT 4.9 K/mm3 (4.0-10.0)
--- NOTE | 2018-06-22 09:10 | CON.NEURO ---
Consult Consult Specialty:: Suzy Referred by:: Arnie Reason for Consultation:: near syncopp - History of Present Illness History of Present Illness: 88 years old man with PMH CAD OA OBS HTN patient from home with near syncopy events. Patient stabilized in the ER and admitted to the floor. according to the patient himself is not aware of what happened according to the family patient blood pressure was very low patient was stepwise no history of cardiac arrhythmia I note the patient very well from the office with a history of advanced dementia. Patient was tried on different anticholinergic medicines before. In this admission no neuro imaging was done no report of any recent travel. 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 - Alcohol/Substance Use Hx Alcohol Use: No - Smoking History Smoking history: Former smoker Have you smoked in the past 12 months: No Aproximately how many cigarettes per day: 2 Home Medications - Allergies Allergies/Adverse Reactions: Allergies Allergy/AdvReac Type Severity Reaction Status Date / Time Penicillins Allergy Verified 06/21/18 10:25 - Home Medications Home Medications: Ambulatory Orders Losartan Potassium 100 mg PO DAILY 10/22/16 Metoprolol Tartrate 25 mg PO BID 10/22/16 Donepezil HCl [Aricept -] 10 mg PO DAILY 11/11/16 Amlodipine Besylate [Norvasc -] 5 mg PO DAILY 06/21/18 Family Disease History - Family Disease History Family History: Unable to Obtain Review of Systems - Review of Systems Neurological: reports: Parasthesia Physical Exam-Neuro Vital Signs: Vital Signs Temperature 98.1 F 06/22/18 05:00 Pulse Rate 78 06/22/18 05:00 Respiratory Rate 20 06/22/18 05:00 Blood Pressure 119/72 06/22/18 05:00 O2 Sat by Pulse Oximetry (%) 99 06/21/18 21:00 Constitutional: Yes: Well Nourished Neck: Yes: WNL Labs: CBC, BMP 06/22/18 07:36 06/22/18 07:36 INR, PTT INR 1.12 (0.83-1.09) H 06/21/18 11:37 - Neuro Exam Level Of Consciousness: Yes: Oriented to Person, Oriented to Place Eyes: Yes: PERRLA Speech: WNL Dominant Hand: Right Mini Mental Exam: 18 Cranial Nerves II-XII Intact: Yes Gag: Present DTR's: 1+ Left Bicep, 1+ Right Bicep, 1+ Left Brachioradialis, 1+ Right Brachioradialis Response to light touch: Normal Response to pain prick: Normal Response to temperature: Normal Motor Strength: 3/5: Left Arm, Right Arm, Left Leg, Right Leg Problem List - Problems (1) Syncope, near Assessment/Plan: nonfocal neurological examination for acute pathology. Advanced dementia of the Alzheimer type Hypotension induced near-syncope Questionable Aricept inducd syncope 1. Agree to plan to admit and monitor. 2. Tight blood pressure control. 3. Stop the Aricept. 4. Trial of galantamine 8 mg once daily. 4. CAT scan of the head without contrast. 5. DVT prophylaxis. 6. Baby aspirin 81 mg once daily. 7. Follow-up with cardiology. Thank you very much for allowing me to be part of this patient neurological care. Code(s): R55 - SYNCOPE AND COLLAPSE
--- NOTE | 2018-06-22 10:57 | PN ---
Progress Note, Physician Chief Complaint: A-fib Near syncopal episode History of Present Illness: Previous events and notes reviewed alert and awake NAD Patient denies chest pain or SOB - Current Medication List Current Medications: Active Medications Acetaminophen (Tylenol -) 650 mg PO Q6H PRN PRN Reason: PAIN OR FEVER Sodium Chloride (Normal Saline -) 1,000 mls @ 83 mls/hr IV ASDIR [facility] Last Admin: 06/21/18 15:18 Dose: 83 mls/hr Metoprolol Tartrate (Lopressor -) 25 mg PO BID [facility] Last Admin: 06/21/18 22:10 Dose: 25 mg - Objective Vital Signs: Vital Signs Temperature 98 F 06/22/18 09:00 Pulse Rate 72 06/22/18 09:00 Respiratory Rate 18 06/22/18 09:00 Blood Pressure 118/68 06/22/18 09:00 O2 Sat by Pulse Oximetry (%) 99 06/21/18 21:00 Constitutional: Yes: Well Nourished, No Distress, Calm Eyes: Yes: Conjunctiva Clear Neck: Yes: Supple Cardiovascular: Yes: Pulse Irregular Respiratory: Yes: Regular, CTA Bilaterally Gastrointestinal: Yes: WNL, Normal Bowel Sounds, Soft Musculoskeletal: Yes: Muscle Weakness Extremities: Yes: WNL Edema: No Integumentary: Yes: WNL Neurological: Yes: Alert, Pre-Existing Deficit Psychiatric: Yes: Alert Labs: CBC, BMP 06/22/18 07:36 06/22/18 07:36 INR, PTT INR 1.12 (0.83-1.09) H 06/21/18 11:37 <Amira Serrano - Last Filed: 06/22/18 10:51> - Current Medication List Current Medications: Active Medications Acetaminophen (Tylenol -) 650 mg PO Q6H PRN PRN Reason: PAIN OR FEVER Sodium Chloride (Normal Saline -) 1,000 mls @ 83 mls/hr IV ASDIR [facility] Last Admin: 06/21/18 15:18 Dose: 83 mls/hr Metoprolol Tartrate (Lopressor -) 25 mg PO BID [facility] Last Admin: 06/22/18 10:58 Dose: 25 mg - Objective Vital Signs: Vital Signs Temperature 98 F 06/22/18 09:00 Pulse Rate 72 06/22/18 09:00 Respiratory Rate 18 06/22/18 09:00 Blood Pressure 118/68 06/22/18 09:00 O2 Sat by Pulse Oximetry (%) 99 06/22/18 09:00 Labs: CBC, BMP 06/22/18 07:36 06/22/18 07:36 INR, PTT INR 1.12 (0.83-1.09) H 06/21/18 11:37 <Ynes Gaitan - Last Filed: 06/22/18 14:47> Problem List - Problems (1) Atrial fibrillation Code(s): I48.91 - UNSPECIFIED ATRIAL FIBRILLATION Qualifiers: Atrial fibrillation type: unspecified Qualified Code(s): I48.91 - Unspecified atrial fibrillation (2) Dementia Code(s): F03.90 - UNSPECIFIED DEMENTIA WITHOUT BEHAVIORAL DISTURBANCE (3) Syncope, near Code(s): R55 - SYNCOPE AND COLLAPSE (4) Hypertension Code(s): I10 - ESSENTIAL (PRIMARY) HYPERTENSION <Amira Serrano - Last Filed: 06/22/18 10:51> - Problems (1) Dementia Code(s): F03.90 - UNSPECIFIED DEMENTIA WITHOUT BEHAVIORAL DISTURBANCE (2) Atrial fibrillation Code(s): I48.91 - UNSPECIFIED ATRIAL FIBRILLATION Qualifiers: Atrial fibrillation type: unspecified Qualified Code(s): I48.91 - Unspecified atrial fibrillation (3) Headache Code(s): R51 - HEADACHE (4) Hypertension Code(s): I10 - ESSENTIAL (PRIMARY) HYPERTENSION <Ynes Gaitan - Last Filed: 06/22/18 14:47> Assessment/Plan -pending cardiology consult -cont with Metoprolol 25 BID -cont tele monitoring -neurology recommendation appreciated -pending Head CT scan without contrast -fall precaution -SCD for dvt ppx -BGM -neuro checks -PT <Amira Serrano - Last Filed: 06/22/18 10:51> PATIENT SEEN AND EXAMINED I AGREE WITH THE ABOVE NOTE <Ynes Gaitan - Last Filed: 06/22/18 14:47>
[2018-06-22] MEDS: METOPROLOL TARTRATE 25 MG TABLET (FP) PO SCH (10:58)
--- NOTE | 2018-06-22 15:08 | CON.CARD ---
Consult Consult Specialty:: Cardiology Referred by:: Dr Gaitan Reason for Consultation:: PAF - History of Present Illness Chief Complaint: near syncope History of Present Illness: 88yo man with PMH of HTN, HLD, AAA, CVA (5 years ago, no residual effects), GI bleeding 2017, dementia admitted with near syncope found afib with RVR spontaneously converted to NSR. No chest pain, sob, orthopnea,pnd or edema. Baseline exercise tolerance is good. His family denies falls or recent bleeding. 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 - Alcohol/Substance Use Hx Alcohol Use: No - Smoking History Smoking history: Former smoker Have you smoked in the past 12 months: No Aproximately how many cigarettes per day: 2 Home Medications - Allergies Allergies/Adverse Reactions: Allergies Allergy/AdvReac Type Severity Reaction Status Date / Time Penicillins Allergy Verified 06/21/18 10:25 - Home Medications Home Medications: Ambulatory Orders Losartan Potassium 100 mg PO DAILY 10/22/16 Metoprolol Tartrate 25 mg PO BID 10/22/16 Donepezil HCl [Aricept -] 10 mg PO DAILY 11/11/16 Amlodipine Besylate [Norvasc -] 5 mg PO DAILY 06/21/18 Vital Signs: Vital Signs Temperature 98 F 06/22/18 09:00 Pulse Rate 72 06/22/18 09:00 Respiratory Rate 18 06/22/18 09:00 Blood Pressure 118/68 06/22/18 09:00 O2 Sat by Pulse Oximetry (%) 99 06/22/18 09:00 Constitutional: Yes: No Distress, Calm Eyes: Yes: Conjunctiva Clear, EOM Intact HENT: Yes: Atraumatic, Normocephalic Neck: Yes: Trachea Midline Respiratory: Yes: CTA Bilaterally Gastrointestinal: Yes: Normal Bowel Sounds, Soft Cardiovascular: Yes: Regular Rate and Rhythm JVD: No Carotid Bruit: No PMI: Non-Displaced Heart Sounds: Yes: S1, S2 Murmur: Yes: Systolic Murmur, Grade 2 Extremities: Yes: WNL Edema: No Peripheral Pulses WNL: Yes - Other Data Labs, Other Data: CBC, BMP 06/22/18 07:36 06/22/18 07:36 INR, PTT INR 1.12 (0.83-1.09) H 06/21/18 11:37 Imaging - Results Chest X-ray: Report Reviewed EKG: Report Reviewed Assessment/Plan 88yo man with PMH of HTN, HLD, AAA, CVA (5 years ago, no residual effects), GI bleeding 2016, dementia admitted with near syncope found afib with RVR spontaneously converted to NSR. Given his CHADS2-VASC score would start AC with Eliquis 2.5 mg bid if no contraindications. Would consider GI evaluation to assess risk. Echo ordered. stop ARB increase metoprolol when euvolemic.
[2018-06-22 19:03] VITALS: BP 148/70; PULSE 70; TEMP 98
--- NOTE | 2018-06-22 21:08 | HOSP ---
Subjective - Review of Symptoms Events since last encounter: Called by RN to patients rom because his HCP would like to sign him out AMA. As per family members, pt has been inpt since Friday and has not slept due to being in a "strange environment." They feel as if he is more irritable and " the hospital did not do the echo, which was the reason they allowed him to stay this long." They insist " his BP and HR are ok" and if they take him home they will bring him back for any necessary tests. They insist he will be calmer and sleep better at home and they are willing to take the responsibility for signing him out. Pt was also ordered to start eliquis if cleared by GI, but has not been evalauted by GI on this admission. Risks and benefits discussed with family (including HCP). They voice understanding and signed paperwork for Leaving hospital/AMA. Family members agree to outpt follow up with mixer pigment and GI for continued care. Physical Examination Vital Signs: Vital Signs Temperature 98 F 06/22/18 18:00 Pulse Rate 70 06/22/18 18:00 Respiratory Rate 18 06/22/18 18:00 Blood Pressure 148/70 06/22/18 18:00 O2 Sat by Pulse Oximetry (%) 99 06/22/18 09:00 Constitutional: Yes: Well Nourished, No Distress, Calm Eyes: Yes: Conjunctiva Clear HENT: Yes: Atraumatic, Normocephalic Neck: Yes: WNL, Supple Cardiovascular: Yes: Regular Rate and Rhythm Respiratory: Yes: Regular, CTA Bilaterally Gastrointestinal: Yes: Normal Bowel Sounds, Soft Musculoskeletal: Yes: WNL Extremities: Yes: WNL Edema: No Peripheral Pulses WNL: Yes Peripheral Pulses: Left Radial: 2+, Right Radial: 2+ Neurological: Yes: Alert, Other (forgetful) ...Motor Strength: WNL Psychiatric: Yes: Alert Labs: CBC, BMP 06/22/18 07:36 06/22/18 07:36 Hospitalist Encounter Assessment: Afib with RVR now resolved. Family signed pt signed out AMA, will f/u with specialty care as outpt
--- NOTE | 2018-06-23 07:19 | DS ---
Physical Examination Vital Signs: Vital Signs Temperature 98 F 06/22/18 18:00 Pulse Rate 70 06/22/18 18:00 Respiratory Rate 18 06/22/18 18:00 Blood Pressure 148/70 06/22/18 18:00 O2 Sat by Pulse Oximetry (%) 99 06/22/18 09:00 Labs: CBC, BMP 06/22/18 07:36 06/22/18 07:36 Discharge Summary Reason For Visit: A-FRIB Condition: Stable - Instructions Referrals: Dick Lizama MD [Primary Care Provider] - Disposition: AGAINST MEDICAL ADVICE - Home Medications Comprehensive Discharge Medication List: Ambulatory Orders Losartan Potassium 100 mg PO DAILY 10/22/16 Metoprolol Tartrate 25 mg PO BID 10/22/16 Donepezil HCl [Aricept -] 10 mg PO DAILY 11/11/16 Amlodipine Besylate [Norvasc -] 5 mg PO DAILY 06/21/18
== END 2018-06-22 08:15 | disposition left against medical advice (07) | DRG 312 ==
LOC: JER 10:07 → JERBED 13:49 → J4W 18:07
PROVIDERS: ADMIT Family Medicine; ATTEND Family Medicine
DX: I95.2 Hypotension due to drugs (principal); I10 Essential (primary) hypertension; Z87.891 Personal history of nicotine dependence; I48.91 Unspecified atrial fibrillation; F03.90 Unspecified dementia, unspecified severity, without behavioral disturbance, psychotic disturbance, mood disturbance, and anxiety; I25.10 Atherosclerotic heart disease of native coronary artery without angina pectoris; R55 Syncope and collapse; Z86.73 Personal history of transient ischemic attack (TIA), and cerebral infarction without residual deficits; T44.1X5A Adverse effect of other parasympathomimetics [cholinergics], initial encounter
CPT/HCPCS: 36415; 70450-TC; 71045-TC-FY; 76705-TC; 80048; 80053; 81003; 82550; 82607; 83605; 84443; 84484; 85025; 85027; 85610; 86850; 86900; 86901; 87086; 93005; 93010; 97116-GP; 97161-GP; 99281-25; J7030

== ENCOUNTER 2018-09-19 08:24 | Emergency (ER) | payer MEDICARE, OTHER ==
[2018-09-19 08:39] VITALS: TEMP 98.4; BMI 23.6
--- NOTE | 2018-09-19 09:51 | PDOC ---
History of Present Illness - General Chief Complaint: Lightheaded Stated Complaint: WEAK PULSE Time Seen by Provider: 09/19/18 09:31 History Source: Patient, Family Exam Limitations: No Limitations - History of Present Illness Initial Comments: 09/19/18 09:51 Mr. Mahoney is an 88-year-old male with a history of paroxysmal A. fib, hypertension who presents emergency department with family due to a complaint of lightheadedness. Patient awoke in his usual state of health, went to the bathroom. History is a little unclear he may have had a bowel movement, and told his home health aid that he felt dizzy. Home health aid distended vital signs and reported a low pulse. Patient denies pain of any kind, denies chest pain, abdominal pain. He denies nausea, vomiting. He's had no recent illness. Currently the patient has no complaints. PMH: Atrial fibrillation, hypertension PSH: Meds: Metoprolol, amlodipine, lisinopril, Eliquis, eye drops ALL: PCN Social: Lives at home, 24hour [employer], Ambulatory with assistance, Denies Tobacco, drug use FH: non contributory ROS: GENERAL/CONSTITUTIONAL: No: fever, chills, weakness, loss of appetite. HEAD, EYES, EARS, NOSE AND THROAT: No: change in vision, ear pain, discharge, sore throat, throat swelling. CARDIOVASCULAR: No: chest pain, lightheadedness, palpitations, syncope RESPIRATORY: No: cough, shortness of breath, wheezing GASTROINTESTINAL: No: nausea, vomiting, diarrhea, abdominal pain GENITOURINARY: No: dysuria, hematuria, frequency, urgency, flank pain. MUSCULOSKELETAL: No: back pain, neck pain, joint pain, muscle swelling or pain SKIN: No: lesions, pallor, rash or easy bruising. NEUROLOGIC: No: headache, vertigo, paresthesias, weakness ENDOCRINE: No: unexplained weight gain or loss HEMATOLOGIC/LYMPHATIC: No: anemia, easy bleeding, swelling nodes. PE: GENERAL: The patient is in no acute distress. HEAD: Normal, no signs of trauma EYES: PERRLA, EOMI, sclera anicteric, conjunctiva clear. ENT: Ears normal, nares patent, oropharynx clear without exudates. Moist mucous membranes. NECK: Normal range of motion, supple LUNGS: Breath sounds equal, clear to auscultation bilaterally. No wheezes, and no crackles. HEART:Regular rate and rhythm, normal S1 and S2 without murmur, rub or gallop. ABDOMEN: Soft, nontender, normoactive bowel sounds. No guarding, no rebound. EXTREMITIES: Normal range of motion, no edema. NEUROLOGICAL: Cranial nerves II through XII grossly intact. Normal speech. No focal neurological deficits. MUSCULOSKELETAL: Back non-tender to palpation, no CVA tenderness SKIN: Warm, Dry, normal turgor, no rashes or lesions noted. Past History - Past Medical History Allergies/Adverse Reactions: Allergies Allergy/AdvReac Type Severity Reaction Status Date / Time Penicillins Allergy Verified 06/21/18 10:25 Home Medications: Ambulatory Orders Losartan Potassium 100 mg PO DAILY 10/22/16 Metoprolol Tartrate 25 mg PO BID 10/22/16 Donepezil HCl [Aricept -] 10 mg PO DAILY 11/11/16 Amlodipine Besylate [Norvasc -] 5 mg PO DAILY 06/21/18 Apixaban [Eliquis] 2.5 mg PO BID 09/19/18 Anemia: No Asthma: No Cancer: No Cardiac Disorders: No CVA: No COPD: No CHF: No Dementia: Yes Diabetes: No GI Disorders: No Disorders: No HTN: Yes Hypercholesterolemia: No Liver Disease: No Seizures: No Thyroid Disease: No - Suicide/Smoking/Psychosocial Hx Smoking History: Never smoked Have you smoked in the past 12 months: No Number of Cigarettes Smoked Daily: 2 Cigars Per Day: 1 'Breaking Loose' booklet given: 11/11/16 Hx Alcohol Use: No Drug/Substance Use Hx: No Substance Use Type: None Hx Substance Use Treatment: No *Physical Exam - Vital Signs Last Vital Signs Temp Pulse Resp BP Pulse Ox 98.4 F 62 17 124/72 99 09/19/18 08:33 09/19/18 08:33 09/19/18 08:33 09/19/18 08:33 09/19/18 08:33 ED Treatment Course - LABORATORY CBC & Chemistry Diagram: 09/19/18 10:00 09/19/18 10:00 Medical Decision Making - Medical Decision Making 09/19/18 09:44 EKG - NSR rate of 61 bpm, axis nml, no st elevation or depression, intervals abn - pr:256ms (prolonged), QRS 84ms, QTc:386ms, t waves upright 09/19/18 09:59 88-year-old male presented to emergency department with family due to lightheadedness. The urinalysis is supple. Arm". Patient has no complaints Differential diagnosis includes but is not limited to: Tachycardia arrhythmia which is since resolved, orthostatic hypotension Unlikely ACS Will do: Labs, continuous monitoring, orthostatic vital signs. Family refusing CT Family requesting that patient's [facility] physician be contacted 09/19/18 11:11 Laboratory Tests 03/02/16 06/21/18 06/22/18 20:23 11:37 07:36 WBC 4.9 Hgb 12.5 Hct 35.5 Plt Count 308 Sodium Potassium Chloride Carbon Dioxide Anion Gap BUN Creatinine Random Glucose Creatine Kinase 28 Troponin I 0.05 0.03 06/22/18 09/19/18 09/19/18 07:36 10:00 10:00 WBC 5.4 Hgb 12.3 Hct 37.1 Plt Count 343 Sodium 140 Potassium 4.4 Chloride 106 Carbon Dioxide 28 Anion Gap 5 L 5 L BUN 16 Creatinine 1.4 H 1.5 H Random Glucose 86 Creatine Kinase 37 Troponin I 0.03 Patient's youngest daughter who oversees his healthcare states that he has had these symptoms in the past. His physician at [facility] already knows about this. The plan has been to monitor and keep a record of these episodes of dizziness. They're also told to avoid rapid changes in position. The believe the home health aid overreacted this morning. All results given to patient's family, this will be given to his [place] physician. There are asked to return to the ER for any other concerns or complaints I discussed the physical exam findings, ancillary test results and final diagnoses with the patient. I answered all of the patient's questions. The patient was satisfied with the care received and felt comfortable with the discharge plan and treatment plan. The patient will call their primary care physician within 24 hours to arrange follow-up and will return to the Emergency Department with any new, persistent or worsening symptoms. *DC/Admit/Observation/Transfer Diagnosis at time of Disposition: Syncope, near, Dizziness - Discharge Dispostion Disposition: HOME Condition at time of disposition: Stable Decision to Admit order: No - Referrals Referrals: Dick Lizama MD [Primary Care Provider] - - Patient Instructions Printed Discharge Instructions: DI for Dizziness-Nonvertigo Additional Instructions: Thank you for coming in to the ER today Please be sure to follow up with your primary care physician Return to the ER for any other concerns or complaints Please follow up with your primary care physician within 2-3 days - Post Discharge Activity
[2018-09-19 10:09] LABS: BASO % 0.3 % (0-2.0); EOS % 1.8 % (0-4.5); HEMATOCRIT 37.1 % (35.4-49); HEMOGLOBIN 12.3 GM/dL (11.7-16.9); LYMPH % 15.5 % (8-40); MCH 28.1 pg (25.7-33.7); MCHC 33.3 g/dl (32.0-35.9); MEAN CELL VOLUME 84.5 fl (80-96); MEAN PLT VOLUME 7.2 fl (7.5-11.1); MONO % 10.2 % (3.8-10.2); NEUT % 72.2 % (42.8-82.8); PLATELET COUNT 343 K/MM3 (134-434); RBC 4.39 M/mm3 (4.00-5.60); WHITE BLOOD COUNT 5.4 K/mm3 (4.0-10.0)
[2018-09-19 10:38] LABS: ALBUMIN 3.4 g/dl (3.4-5.0); ALK PHOS 145 U/L (45-117); ANION GAP 5 MMOL/L (8-16); BILIRUBIN,TOTAL 0.4 mg/dL (0.2-1); BLOOD UREA NITROGEN 16 mg/dL (7-18); CALCIUM 8.9 mg/dL (8.5-10.1); CHLORIDE 106 mmol/L (98-107); CO2 28 mmol/L (21-32); CREATININE 1.5 mg/dL (0.55-1.3); GLUCOSE,RANDOM 86 mg/dL (74-106); POTASSIUM 4.4 mmol/L (3.5-5.1); SGOT/AST 11 U/L (15-37); SGPT/ALT 16 U/L (13-61); SODIUM 140 mmol/L (136-145); TOT PROT 7.7 g/dl (6.4-8.2)
[2018-09-19 11:14] VITALS: BP 130/70; PULSE 58
--- NOTE | 2018-09-19 11:29 | EKG ---
Test Reason : Blood Pressure : / mmHG Vent. Rate : 061 BPM Atrial Rate : 061 BPM P-R Int : 256 ms QRS Dur : 084 ms QT Int : 384 ms P-R-T Axes : 024 -05 019 degrees QTc Int : 386 ms SINUS RHYTHM WITH 1ST DEGREE A-V BLOCK OTHERWISE NORMAL ECG WHEN COMPARED WITH ECG OF 21-JUN-2018 10:38, SINUS RHYTHM HAS REPLACED ATRIAL FIBRILLATION VENT. RATE HAS DECREASED BY 52 BPM Confirmed by CAROLINE ADAN MD ([id number]) on 09/19/2018 11:29:03 AM Referred By: Confirmed By:CAROLINE ADAN MD
== END 2018-09-19 11:47 | disposition home or self-care (01) ==
LOC: JER 08:24
DX: R55 Syncope and collapse (principal); I10 Essential (primary) hypertension; F03.90 Unspecified dementia, unspecified severity, without behavioral disturbance, psychotic disturbance, mood disturbance, and anxiety
CPT/HCPCS: 36415; 80053; 82550; 84484; 85025; 93005; 93010; 99282-25